=== PATIENT | female | born 1980 | race Caucasian/White ===

== ENCOUNTER 2016-11-15 12:37 | Observation (INO) | payer MEDICAID ==
[~2016-11-15] VITALS: Ht 188 cm; Wt 108.9 kg
[2016-11-15 13:54] LABS: Basophils # (auto) 0 uL; Basophils % (auto) 0.5 % (0.0-2.0); CONDITION AutoValidated; Eosinophils # (auto) 0 uL; Eosinophils % (auto) 0.2 % (0.0-7.0); Hematocrit 46.3 % (36.0-46.0); Hemoglobin 15.8 g/dL (12.2-16.2); Lymphocytes # (auto) 2.2 uL; Lymphocytes % (auto) 24.4 % (10.0-50.0); Mean Corpuscular Hemoglobin 31.1 pg (28.0-32.0); Mean Corpuscular Hgb Conc. 34.2 g/dL (32.0-36.0); Mean Corpuscular Volume 91.1 fL (80.0-100.0); Mean Platelet Volume 7.6 fL (7.4-10.4); Monocytes # (auto) 0.9 uL; Monocytes % (auto) 10.1 % (0.0-12.0); Neutrophils # (auto) 5.9 uL; Neutrophils % (auto) 64.8 % (37.0-80.0); Platelet Count (auto) 310 10^3/uL (140-450); Red Cell Distribution Width 14.1 % (11.6-16.0); White Blood Cell 9.1 10^3/uL (4.4-10.8)
[2016-11-15 14:18] LABS: Albumin 3.6 g/dL (3.4-5.0); BUN/Creatinine Ratio 12.5; Calcium 8.4 mg/dL (8.5-10.1); Potassium 3.6 mmol/L (3.5-5.1)
[2016-11-15 14:21] LABS: Bilirubin, Total 0.5 mg/dL (0.2-1.0); Total Protein 7.8 g/dL (6.4-8.2)
[2016-11-15] MEDS ORDERED: SODIUM CHLORIDE 0.9% 1,000 ML IVB ONE (17:32)
[2016-11-15 18:16] LABS: Magnesium 2.3 mg/dL (1.6-2.6)
[2016-11-15] MEDS ORDERED: KETOROLAC TROMETH 30 MG/ML 1ML VIAL IV ONE (20:15)
[2016-11-15 20:26] LABS: Urine Bilirubin Negative (Negative); Urine Blood Negative /uL (Negative); Urine Color Yellow (Yellow); Urine Glucose Normal (Normal); Urine Ketone Negative (Negative); Urine Mucus FEW (None Seen); Urine Nitrite Negative (Negative); Urine RBC 3 /hpf (0 - 4); Urine Squamous Epithelial Cell MOD /hpf (<5)
[2016-11-15 20:37] VITALS: BP 128/72
== END 2016-11-15 21:03 | disposition home or self-care (01) | DRG 241 ==
LOC: ER 12:42 → OVERFLOW 17:34 → ER 21:03
PROVIDERS: ADMIT Family Medicine; ATTEND Family Medicine
DX: K29.70 Gastritis, unspecified, without bleeding (principal); F17.210 Nicotine dependence, cigarettes, uncomplicated; R79.89 Other specified abnormal findings of blood chemistry; R11.0 Nausea; Z82.49 Family history of ischemic heart disease and other diseases of the circulatory system; Z83.3 Family history of diabetes mellitus
CPT/HCPCS: 36415; 71010; 74176; 80053; 81001; 82150; 82962; 83690; 83735; 84702; 85025; 96361; 96374; 99285; G0378; J1885